=== PATIENT | female | born 1975 | race Caucasian/White ===

== ENCOUNTER 2017-05-07 19:15 | Emergency (ER) | payer OTHER ==
[~2017-05-07] VITALS: Wt 74.5 kg
[~2017-05-07 19:15] MED LIST: IBUP800T25 PO
[2017-05-07] MEDS ORDERED: LIDOCAINE 1%/EPI 30 ML INJ INJ STA (20:37)
--- NOTE | 2017-05-07 20:59 | ERD ---
ER Documentation Chief Complaint Date/Time DATE: 05/07/17 TIME: 20:58 Chief Complaint Laceration to the left foot plantar area HPI 41-year-old female comes in with a laceration to the plantar aspect of her left foot that occurred earlier this evening from a light bulb that burst in her home. Patient states that there was about a 1 inch piece that she pulled out of the bottom of her foot, that subsequently led to bleeding. She has sharp pain, however no precise symptoms of foreign body sensation at this time. She states that she was barefoot when she stepped on the glass, without any shoes on. Patient does not recall her last tetanus shot. Patient states that she has a foreign body sensation ROS All systems reviewed and are negative except as per history of present illness. Medications Home Meds Active Scripts Naproxen* (Naprosyn*) 500 Mg Tablet, 500 MG PO BID Y for PAIN AND/OR INFLAMMATION, #30 TAB Prov:BLADE GASTON PA-C 05/07/17 Cephalexin* (Keflex*) 500 Mg Capsule, 500 MG PO QID for 5 Days, CAP Prov:BLADE GASTON PA-C 05/07/17 Ibuprofen* (Motrin*) 800 Mg Tab, 800 MG PO Q8, #30 TAB Prov:FERNANDA SNOW NP 05/27/16 Allergies Allergies: Coded Allergies: No Known Allergy (Unverified , 05/07/17) PMhx/Soc History of Surgery: No Anesthesia Reaction: No Hx Neurological Disorder: No Hx Respiratory Disorders: No Hx Cardiac Disorders: No Hx Psychiatric Problems: No Hx Miscellaneous Medical Probl: No Hx Alcohol Use: No Hx Substance Use: No Hx Tobacco Use: No Smoking Status: Never smoker Physical Exam Vitals Vital Signs Date Time Temp Pulse Resp B/P Pulse Ox O2 Delivery O2 Flow Rate FiO2 05/07/17 20:05 97.9 74 20 152/80 99 Physical Exam General: Well-developed, well-nourished. The patient appears in no acute distress. HEENT: Head is normocephalic, atraumatic. No scleral icterus. Neck: Supple. Nontender. Lungs: Clear to auscultation. Normal air movement. Heart: Regular rate and rhythm. S1 and S2 are normal. No murmurs, gallops, or rubs. Abdomen: Nondistended. Extremities: There is a 2 cm laceration at the base of the left foot, there is no active bleeding. No foreign body that was obvious. Neurologic: Alert and oriented 3. No focal deficits. Normal speech and gait. Skin: Normal turgor. No rash or lesions. Results 24 hrs Current Medications Medications (Trade) Dose Ordered Sig/Lauren Route PRN Reason Start Time Stop Time Status Last Admin Dose Admin Lidocaine/ Epinephrine (Xylocaine 1%/ Epi (Pf)) 30 ml ONCE STAT INJ 05/07/17 20:37 05/07/17 20:39 DC Diphtheria/ Tetanus/Acell Pertussis (Adacel) 0.5 ml ONCE ONCE IM* 05/07/17 21:00 05/07/17 21:01 DC 05/07/17 22:37 Acetaminophen/ Hydrocodone Bitart ([place] (5/325)) 1 tab ONCE ONCE PO 05/07/17 21:00 05/07/17 21:01 DC 05/07/17 22:36 Lidocaine/ Epinephrine (Xylocaine 2%/ Epi Mpf(Sdv)) 20 ml ONCE ONCE INJ 05/07/17 23:00 05/07/17 23:01 DC Procedures/MDM ED course: Patient's tetanus was updated. She was given [place] for pain. Patient's foot was soaked, as well as irrigated thoroughly with normal saline. Procedure, exploration of the wound. Patient was verbally consented. Use lidocaine 2% with epinephrine, approximately 3 cc anesthetized the surface of the wound. I irrigated the wound copiously, explored the wound with forceps with blunt dissection however it was not able to find any foreign body, there was no foreign body appreciated. She states that she felt glass in her foot, given that is not a very large laceration, I will leave the wound air open, to allow for very healing, and to allow for foreign body to remove. Patient's foot was then dressed with bacitracin and a clean dressing, she was placed in a postop shoe Medical decision m[age]-year-old female comes in with a laceration to the bottom of her foot from a broken shattered in the house, it shattered and there was about a 1 inch piece that she was able to remove herself. Prior to anesthetizing the patient she states that she was having for foreign body sensation, I did try multiple attempts to remove foreign body, likely glass. It was not radiopaque, however given that it is glass there may be a foreign body in the foot. We will allow for secondary healing, she will be given antibiotics for home. She was asked to recheck the wound in 2 days. Departure Diagnosis: Primary Impression: Laceration Condition: Good BLADE GASTON PA-C May 07, 2017 20:59
[2017-05-07] MEDS ORDERED: HYDROCODONE/APAP (5/325) TAB PO ONE (21:00)
[2017-05-07] MEDS ORDERED: DIPHTH/TET/ACEL PERTUSS (ADULT) 0.5 ML VIAL IM* ONE (21:00)
--- NOTE | 2017-05-07 22:07 | RADRPT ---
PROCEDURE: XR left foot. CLINICAL INDICATION: Laceration TECHNIQUE: AP, lateral and oblique views of the left foot were obtained. COMPARISON: None. FINDINGS: Mineralization is within normal limits. No fracture or osseous lesion is identified. There is no e vidence for dislocation. The metatarsophalangeal, interphalangeal, and mid tarsal joint spaces are preserved. Incidental note is made of a plantar calcaneal spur mild diffuse soft tissue swelling is present. Bandaging is suspected surrounding the midfoot with benign appearing calcifications in the heel pad. IMPRESSION: Soft tissue swelling without evidence of acute osseous abnormality involving the left foot. RPTAT:HJJR Physician Samantha Date Time Electronically viewed and signed by Physician Samantha on 05/07/2017 22:07 /
[2017-05-07] MEDS ORDERED: LIDOCAINE 2%/EPI MPF (SDV) 20 ML VIAL INJ ONE (23:00)
[2017-05-07] MEDS ORDERED: NAPR-260 PO (23:37)
[2017-05-07] MEDS ORDERED: CEPH-443 PO (23:37)
[2017-05-08 00:21] VITALS: BP 138/80; PULSE 72; RESP 18; TEMP 98.3
== END 2017-05-08 00:14 | disposition home or self-care (01) ==
LOC: FTE 19:15
DX: S91.312A Laceration without foreign body, left foot, initial encounter (principal); W22.8XXA Striking against or struck by other objects, initial encounter; Y92.009 Unspecified place in unspecified non-institutional (private) residence as the place of occurrence of the external cause; Z23 Encounter for immunization
CPT/HCPCS: 73630; 90471; 90715; Z7502; Z7610